=== PATIENT | female | born 1990 | race Asian ===

== ENCOUNTER 2019-06-25 17:54 | Emergency (ER) | payer OTHER ==
[~2019-06-25] VITALS: Ht 157.5 cm; Wt 60.2 kg
[2019-06-25 20:10] LABS: BASO # 0.1 10^3/uL (0.0-0.2); BASO % 0.5 % (0.0-1.0); EOS % 0.2 % (0.0-3.0); HEMATOCRIT 45.3 % (36.0-47.0); HEMOGLOBIN 14.8 g/dl (12.0-15.5); LYMPH # 2.6 10^3/uL (1.5-5.0); LYMPH % 20.1 % (24.0-44.0); MEAN CORPUSCULAR HEMOGLOBIN 29.8 pg (27.0-33.0); MEAN CORPUSCULAR HGB CONC 32.7 g/dl (32.0-36.5); MEAN CORPUSCULAR VOLUME 91.1 fl (80.0-96.0); MONO # 0.7 10^3/uL (0.0-0.8); MONO % 5.7 % (0.0-5.0); NEUTROPHILS # 9.5 10^3/uL (1.5-8.5); NEUTROPHILS % 72.9 % (36.0-66.0); PLATELET COUNT, AUTOMATED 389 10^3/uL (150-450); RED BLOOD COUNT 4.97 10^6/uL (4.00-5.40); WHITE BLOOD COUNT 13.1 10^3/uL (4.0-10.0)
[2019-06-25 20:50] LABS: BLOOD UREA NITROGEN 8 MG/DL (7-18); CALCIUM LEVEL 9.6 MG/DL (8.5-10.1); CARBON DIOXIDE LEVEL 25 MEQ/L (21-32); CHLORIDE LEVEL 106 MEQ/L (98-107); CREATININE FOR GFR 0.78 MG/DL (0.55-1.30); GLOMERULAR FILTRATION RATE > 60.0 (>60); GLUCOSE, FASTING 99 MG/DL (70-100); HCG, SERUM QUANTITATIVE 1663 MIU/ML; SODIUM LEVEL 139 MEQ/L (136-145)
--- NOTE | 2019-06-25 20:53 | REPVR ---
PROCEDURE INFORMATION: Exam: US First Trimester, Transabdominal Exam date and time: 06/25/2019 8:25 PM Age: 29 years old Clinical indication: Lmp or gestational age (in weeks): 04/06/2019; Other: Vaginal bleeding; ; Additional info: 12 weeks , vaginal bleeding TECHNIQUE: Imaging protocol: Real-time transabdominal obstetrical ultrasound of the maternal pelvis and a first trimester , less than 14 weeks 0 days, with image documentation. COMPARISON: No relevant prior studies available. FINDINGS: GESTATION: Gestation: Single gestational sac demonstrated in the uterus. Sac size abnormally large relative to the pole (see below). Single pole demonstrated within the gestational sac with a crown-rump length measuring 2.1 cm. Heart rate: heart rate is not detected. Placenta: Unremarkable. No subchorionic bleed. Amniotic fluid: Amniotic and coelomic fluid are normal for gestational age. BIOMETRY: Estimated gestational age: Gestational age based on crown-rump length is 8 weeks 5 days versus 11 weeks 3 days using LMP of 04/06/2019. Estimated due date: KUMAR using ultrasound is 01/31/2020. MATERNAL: Uterus: Unremarkable. Cervix: Unremarkable. Right adnexa: Unremarkable. Left adnexa: Unremarkable. Intraperitoneal: No intraperitoneal free fluid. IMPRESSION: Findings consistent with early failure with discordant size dates as described above. Electronically signed by: Meet May On 06/25/2019 20:52:38 PM
[2019-06-25 23:26] LABS: CHLAMYDIA DNA AMPLIFICATION NEGATIVE (NEGATIVE); GC DNA AMPLIFICATION NEGATIVE (NEGATIVE)
[2019-06-25 23:32] VITALS: BP 113/61
== END 2019-06-25 23:33 | disposition home or self-care (01) ==
LOC: M ED 17:54
DX: O03.4 Incomplete spontaneous abortion without complication (principal)

== ENCOUNTER 2019-06-27 01:46 | Emergency (ER) | payer OTHER ==
[2019-06-27 02:47] LABS: HEMATOCRIT 40.7 % (36.0-47.0); HEMOGLOBIN 13.4 g/dl (12.0-15.5)
--- NOTE | 2019-06-27 04:00 | REPVR ---
PROCEDURE INFORMATION: Exam: US Pelvis Complete, Transabdominal Exam date and time: 06/27/2019 3:09 AM Age: 29 years old Clinical indication: Pelvic pain; Additional info: oc TECHNIQUE: Imaging protocol: Real-time transabdominal pelvic ultrasound with image documentation. Complete exam. COMPARISON: US OB 2019-06-25 20:26 FINDINGS: Uterus/cervix: Thickened irregular endometrium. Endometrium measures 2.5 cm. 11.7 x 5.3 x 6.5 cm uterus. No abnormal color flow. Right adnexa: Ovary is normal. No mass. Normal blood flow. Left adnexa: Left ovary could not be visualized. Free fluid: None. Bladder: Normal. IMPRESSION: Thickened irregular endometrium, otherwise unremarkable. Electronically signed by: Asad Castillo On 06/27/2019 03:59:59 AM
[2019-06-27 05:30] VITALS: BP 104/60
== END 2019-06-27 05:56 | disposition home or self-care (01) ==
LOC: M ED 01:46
DX: O03.9 Complete or unspecified spontaneous abortion without complication (principal)

== ENCOUNTER → 2019-07-21 | Outpatient (REF) | payer OTHER | LOC: M LAB REF 16:34 | PROVIDERS: ATTEND Obstetrics & Gynecology | DX: O03.39 Incomplete spontaneous abortion with other complications (principal) ==

== ENCOUNTER → 2020-01-27 | Outpatient (CLI) | payer OTHER ==
--- NOTE | 2020-02-02 12:59 | REP ---
OBSTETRIC SONOGRAPHY HISTORY: Supervision of . FINDINGS: Transabdominal scanning confirms the presence of a single living intrauterine gestation in a free floating lie. The crown-rump length of the embryonic pole is 10 mm. This corresponds with a gestational age estimate of 7 weeks 0 days. heart rate is recorded at 160 beats per minute. No extrauterine abnormality. IMPRESSION: Viable single intrauterine gestation at 7 weeks 0 days by crown-rump length. KUMAR by sonography September 14, 2020. MTDD
== END ==
LOC: M RAD 14:09
PROVIDERS: ATTEND Advanced Practice Midwife
DX: O36.80X0 Pregnancy with inconclusive fetal viability, not applicable or unspecified (principal)

== ENCOUNTER → 2020-08-17 | Outpatient (REF) | payer OTHER | LOC: M LAB REF 11:32 | PROVIDERS: ATTEND Advanced Practice Midwife | DX: Z34.83 Encounter for supervision of other normal pregnancy, third trimester (principal); Z36.89 Encounter for other specified antenatal screening; Z3A.00 Weeks of gestation of pregnancy not specified ==